=== PATIENT | male | born 1960 | race Caucasian/White ===

== ENCOUNTER → 2018-03-20 | Outpatient (CLI) | payer OTHER | LOC: M RAD 09:40 | DX: M19.011 Primary osteoarthritis, right shoulder (principal) ==

== ENCOUNTER → 2018-04-30 | Outpatient (CLI) | payer OTHER ==
[2018-04-30 09:09] LABS: HEMATOCRIT 45.6 % (42.0-52.0); MEAN CORPUSCULAR HEMOGLOBIN 32.9 pg (27.0-33.0); MEAN CORPUSCULAR HGB CONC 35.1 g/dl (32.0-36.5); MEAN CORPUSCULAR VOLUME 93.8 fl (80.0-96.0); PLATELET COUNT, AUTOMATED 221 10^3/uL (150-450); RED BLOOD COUNT 4.86 10^6/uL (4.30-6.10); RED CELL DISTRIBUTION WIDTH 11.8 % (11.5-14.5); WHITE BLOOD COUNT 5.3 10^3/uL (4.0-10.0)
[2018-04-30 09:27] LABS: ESTIMATED AVERAGE GLUCOSE 103 MG/DL (60-110); HEMOGLOBIN A1c 5.2 %
[2018-04-30 09:45] LABS: ALBUMIN 4.5 GM/DL (3.2-5.2); ALBUMIN/GLOBULIN RATIO 1.41 (1.00-1.93); ALKALINE PHOSPHATASE 66 U/L (45-117); ALT/SGPT 44 U/L (12-78); ANION GAP 8 MEQ/L (8-16); AST/SGOT 23 U/L (7-37); BLOOD UREA NITROGEN 11 MG/DL (7-18); CALCIUM LEVEL 9.6 MG/DL (8.5-10.1); CARBON DIOXIDE LEVEL 29 MEQ/L (21-32); CHLORIDE LEVEL 104 MEQ/L (98-107); CHOLESTEROL LEVEL 266 MG/DL (<200); CHOLESTEROL RISK RATIO 4.222 (<5); CREATININE FOR GFR 0.95 MG/DL (0.70-1.30); GLOMERULAR FILTRATION RATE > 60.0 (>56); GLUCOSE, FASTING 106 MG/DL (70-100); HDL CHOLESTEROL 63 MG/DL (>40); LDL CHOLESTEROL 180 MG/DL (<100); NON-HDL-C 203 MG/DL; POTASSIUM SERUM 5.3 MEQ/L (3.5-5.1); PSA SCREENING 1.29 NG/ML (< 4.0); SODIUM LEVEL 141 MEQ/L (136-145); TOTAL PROTEIN 7.7 GM/DL (6.4-8.2); TRIGLYCERIDES LEVEL 115 MG/DL (<150)
== END ==
LOC: M WUC 08:09
DX: Z00.00 Encounter for general adult medical examination without abnormal findings (principal); E78.00 Pure hypercholesterolemia, unspecified; Z12.5 Encounter for screening for malignant neoplasm of prostate; Z86.010 Personal history of colon polyps
CPT/HCPCS: 80053

== ENCOUNTER → 2018-06-22 | Outpatient (CLI) | payer OTHER | LOC: M EKG 12:51 | DX: Z01.818 Encounter for other preprocedural examination (principal); M25.511 Pain in right shoulder; M19.011 Primary osteoarthritis, right shoulder | CPT/HCPCS: 93005 ==

== ENCOUNTER → 2019-02-25 | Outpatient (REF) | payer OTHER | LOC: M LAB REF 12:27 | PROVIDERS: ATTEND Physician Assistant | DX: M19.90 Unspecified osteoarthritis, unspecified site (principal) ==

== ENCOUNTER → 2019-08-08 | Outpatient (REF) | payer OTHER | LOC: M LAB REF 18:27 | PROVIDERS: ATTEND Dermatology | DX: L57.0 Actinic keratosis (principal) ==

== ENCOUNTER → 2019-09-13 | Outpatient (REF) | payer OTHER | LOC: M SFHCPLAZ 08:57 | PROVIDERS: ATTEND Internal Medicine | DX: Z00.00 Encounter for general adult medical examination without abnormal findings (principal); E78.00 Pure hypercholesterolemia, unspecified; Z86.010 Personal history of colon polyps; R73.09 Other abnormal glucose ==

== ENCOUNTER → 2020-03-23 | Outpatient (CLI) | payer OTHER ==
[~2020-03-23] MED LIST: CINN500C15 PO; FISH1000 PO; VITATAB74 PO
== END ==
LOC: M LABSMTC 09:43
PROVIDERS: ATTEND Anesthesiology
DX: Z01.818 Encounter for other preprocedural examination (principal); Z11.59 Encounter for screening for other viral diseases
CPT/HCPCS: C9803; U0003

== ENCOUNTER 2020-03-28 07:16 | Day surgery (SDC) | payer OTHER ==
[~2020-03-28] VITALS: Ht 177.8 cm; Wt 76.6 kg
[~2020-03-28 07:16] MED LIST changes: +LIDOCAINE 2% 100MG/5ML SDV (FOR ANES.) As Ordered ONE; +NS 1,000 ML IV ONE; +propofoL 200 MG/20 ML VIAL As Ordered ONE
[2020-03-28 08:45] VITALS: BP 154/84
--- NOTE | 2020-03-28 11:39 | ROOR ---
Patient Name: Boni Espinoza Procedure Date: 03/28/2020 7:59 AM Date of : 1960 Age: 59 Room: [facility] Gender: Male Note Status: Finalized Procedure: Total Colonoscopy to Cecum + Cold Snare Polypectomy + Hemoclips Indications: High risk colon cancer surveillance: Personal history of colonic polyps, Last colonoscopy: 2013 Providers: Kirill Ortiz MD Referring MD: Misael Vanegas MD Requesting Provider: Medicines: Monitored Anesthesia Care Complications: No immediate complications. Procedure: Pre-Anesthesia Assessment: - The heart rate, respiratory rate, oxygen saturations, blood pressure, adequacy of pulmonary ventilation, and response to care were monitored throughout the procedure. The Colonoscope was introduced through the anus and advanced to the cecum, identified by appendiceal orifice and ileocecal valve. The colonoscopy was performed without difficulty. The patient tolerated the procedure well. The quality of the bowel preparation was good. Findings: The perianal and digital rectal examinations were normal. Non-bleeding internal hemorrhoids were found during retroflexion. The hemorrhoids were small and Grade I (internal hemorrhoids that do not prolapse). Multiple small and large-mouthed diverticula were found in the recto-sigmoid colon, sigmoid colon and descending colon. A medium polyp was found at 50 cm proximal to the anus. The polyp was sessile. The polyp was removed with a cold snare. Resection and retrieval were complete. To prevent bleeding after the polypectomy, one hemostatic clip was successfully placed (MR conditional). There was no bleeding at the end of the procedure. The exam was otherwise without abnormality on direct and retroflexion views. Impression: - Non-bleeding internal hemorrhoids. - Diverticulosis in the recto-sigmoid colon, in the sigmoid colon and in the descending colon. - One medium polyp at 50 cm proximal to the anus, removed with a cold snare. Resected and retrieved. Clip (MR conditional) was placed. - The examination was otherwise normal on direct and retroflexion views. - The exam was otherwise normal to the cecum. Recommendation: - Patient has a contact number available for emergencies. The signs and symptoms of potential delayed complications were discussed with the patient. Return to normal activities tomorrow. Written discharge instructions were provided to the patient. - High fiber diet. - Discharge patient to home. - Continue present medications. - Await pathology results. - Telephone GI clinic for pathology results in 1 week. - Repeat colonoscopy in 5 years for surveillance based on pathology results. - Return to referring physician. - The findings and recommendations were discussed with the patient. Kirill Ortiz MD Kirill Ortiz MD 03/28/2020 8:29:54 AM Electronically signed by Kirill Ortiz MD Number of Addenda: 0 Note Initiated On: 03/28/2020 7:59 AM Estimated Blood Loss: Estimated blood loss: none.
== END 2020-03-28 08:59 | disposition home or self-care (01) ==
LOC: M OPP 07:16
PROVIDERS: ATTEND Internal Medicine Gastroenterology
DX: Z12.11 Encounter for screening for malignant neoplasm of colon (principal); Z86.010 Personal history of colon polyps; D12.6 Benign neoplasm of colon, unspecified; K57.30 Diverticulosis of large intestine without perforation or abscess without bleeding; K64.0 First degree hemorrhoids

== ENCOUNTER → 2021-09-13 | Outpatient (CLI) | payer OTHER ==
[~2021-09-13] MED LIST changes: -LIDOCAINE 2% 100MG/5ML SDV (FOR ANES.) As Ordered ONE; -NS 1,000 ML IV ONE; -propofoL 200 MG/20 ML VIAL As Ordered ONE
[2021-09-13 13:30] LABS: HEMATOCRIT 43.7 % (42.0-52.0); HEMOGLOBIN 15.2 g/dl (13.5-17.5); MEAN CORPUSCULAR HEMOGLOBIN 33.3 pg (27.0-33.0); MEAN CORPUSCULAR HGB CONC 34.8 g/dl (32.0-36.5); MEAN CORPUSCULAR VOLUME 95.8 fl (80.0-96.0); PLATELET COUNT, AUTOMATED 208 10^3/uL (150-450); RED BLOOD COUNT 4.56 10^6/uL (4.30-6.10); WHITE BLOOD COUNT 4.8 10^3/uL (4.0-10.0)
[2021-09-13 13:57] LABS: HEMOGLOBIN A1c 5.1 %
[2021-09-13 14:00] LABS: ALBUMIN 3.9 GM/DL (3.2-5.2); ALT/SGPT 37 U/L (12-78); BILIRUBIN,TOTAL 0.8 MG/DL (0.2-1.0); BLOOD UREA NITROGEN 10 MG/DL (7-18); CALCIUM LEVEL 9.2 MG/DL (8.8-10.2); CARBON DIOXIDE LEVEL 29 MEQ/L (21-32); CHLORIDE LEVEL 104 MEQ/L (98-107); CHOLESTEROL LEVEL 262 MG/DL (<200); CHOLESTEROL RISK RATIO 4.763 (<5); CREATININE FOR GFR 0.93 MG/DL (0.70-1.30); GLOMERULAR FILTRATION RATE > 60.0 (>49); GLUCOSE, FASTING 96 MG/DL (70-100); HDL CHOLESTEROL 55 MG/DL (>40); LDL CHOLESTEROL 184 MG/DL (<100); NON-HDL-C 207 MG/DL; POTASSIUM SERUM 4.5 MEQ/L (3.5-5.1); SODIUM LEVEL 137 MEQ/L (136-145); TOTAL PROTEIN 7.2 GM/DL (6.4-8.2); TRIGLYCERIDES LEVEL 117 MG/DL (<150)
[2021-09-13 14:46] LABS: HEPATITIS C VIRUS ABY INDEX 0.1 INDEX (<0.8)
== END ==
LOC: M PLALAB 08:27
PROVIDERS: ATTEND Internal Medicine
DX: Z00.00 Encounter for general adult medical examination without abnormal findings (principal); Z12.5 Encounter for screening for malignant neoplasm of prostate; E78.00 Pure hypercholesterolemia, unspecified; Z11.59 Encounter for screening for other viral diseases; Z86.010 Personal history of colon polyps; R73.09 Other abnormal glucose
CPT/HCPCS: 36415; 80053; 80061; 83036; 85027; 86803; G0103

== ENCOUNTER → 2022-01-28 | Outpatient (CLI) | payer OTHER | LOC: M PLAIMG 08:54 | PROVIDERS: ATTEND Physician Assistant | DX: S39.92XA Unspecified injury of lower back, initial encounter (principal); X58.XXXA Exposure to other specified factors, initial encounter; Y92.9 Unspecified place or not applicable ==

== ENCOUNTER 2023-03-06 14:01 | Inpatient (IN) | payer OTHER ==
[~2023-03-06] VITALS: Ht 177.8 cm; Wt 78.4 kg
[~2023-03-06 14:01] MED LIST changes: +CLOPIDOGREL 75 MG TAB PO SCH
[2023-03-06 14:58] LABS: BASO % 0.3 % (0.0-1.0); HEMATOCRIT 43.9 % (42.0-52.0); HEMOGLOBIN 15.4 g/dl (13.5-17.5); LYMPH # 1.4 10^3/uL (1.5-5.0); LYMPH % 14.1 % (24.0-44.0); MEAN CORPUSCULAR HGB CONC 35.1 g/dl (32.0-36.5); MEAN CORPUSCULAR VOLUME 94.2 fl (80.0-96.0); MONO # 0.4 10^3/uL (0.0-0.8); MONO % 4.4 % (2.0-8.0); NEUTROPHILS # 7.8 10^3/uL (1.5-8.5); NEUTROPHILS % 80.9 % (36.0-66.0); PLATELET COUNT, AUTOMATED 211 10^3/uL (150-450); RED BLOOD COUNT 4.66 10^6/uL (4.30-6.10); WHITE BLOOD COUNT 9.6 10^3/uL (4.0-10.0)
[2023-03-06 15:09] LABS: INR 0.96; PROTHROMBIN TIME 12.5 SECONDS (12.5-14.5)
[2023-03-06 15:24] LABS: CK-MB VALUE MASS 1.3 NG/ML (<3.6)
[2023-03-06 15:28] LABS: MB/CK RELATIVE INDEX 1.08 (< OR =4)
[2023-03-06] MEDS ORDERED: ISOVUE-370 76% 100ML VIAL As Ordered ONE (15:31)
[2023-03-06 15:45] LABS: RSV AMPLIFICATION NEGATIVE (NEGATIVE)
[2023-03-06] MEDS ORDERED: AMLO1TAB24 PO (16:43)
[2023-03-06] MEDS ORDERED: VITA200048 PO (16:46)
[2023-03-06] MEDS ORDERED: MED REC IN PROGRESS XX SCH (16:50)
[2023-03-06] MEDS ORDERED: HOME MED LIST COMPLETE! XX SCH (16:50)
[2023-03-06] MEDS ORDERED: ASPIRIN 325 MG TAB PO ONE (18:00)
[2023-03-06 18:26] LABS: CHOLESTEROL RISK RATIO 3.65 (<5); HDL CHOLESTEROL 69.8 MG/DL (>40); NON-HDL-C 185.2 MG/DL
[2023-03-06 18:45] LABS: HEMOGLOBIN A1c 5.3 % (4.0-6.0)
[2023-03-06 20:36] VITALS: BP 146/86; TEMP 97.4; O2SAT 95
[2023-03-06] MEDS ORDERED: ROSUVASTATIN 10 MG TAB (CRESTOR) PO SCH (21:00)
[2023-03-07 00:55] VITALS: BP 117/60; TEMP 97.5; O2SAT 100
[2023-03-07] MEDS ORDERED: NS 1,000 ML IV SCH (02:05)
[2023-03-07 04:00] VITALS: BP 133/85; TEMP 97.2; O2SAT 95
[2023-03-07] MEDS ORDERED: NS 500 ML IV ONE (04:45)
[2023-03-07 06:25] LABS: HEMATOCRIT 40.9 % (42.0-52.0); HEMOGLOBIN 14.1 g/dl (13.5-17.5); MEAN CORPUSCULAR HEMOGLOBIN 33.2 pg (27.0-33.0); MEAN CORPUSCULAR HGB CONC 34.5 g/dl (32.0-36.5); MEAN CORPUSCULAR VOLUME 96.2 fl (80.0-96.0); PLATELET COUNT, AUTOMATED 192 10^3/uL (150-450); RED BLOOD COUNT 4.25 10^6/uL (4.30-6.10); WHITE BLOOD COUNT 5.3 10^3/uL (4.0-10.0)
[2023-03-07 06:49] LABS: BLOOD UREA NITROGEN 7 MG/DL (9-23); CALCIUM LEVEL 8.8 MG/DL (8.3-10.6); CARBON DIOXIDE LEVEL 28 MMOL/L (20-31); CHLORIDE LEVEL 105 MMOL/L (98-107); CREATININE FOR GFR 0.83 MG/DL (0.70-1.30); GLOMERULAR FILTRATION RATE > 60.0 (>49); GLUCOSE, FASTING 93 MG/DL (74-106); MAGNESIUM LEVEL 1.9 MG/DL (1.8-2.4); PHOSPHORUS LEVEL 3.5 MG/DL (2.4-5.1); SODIUM LEVEL 140 MMOL/L (136-145)
[2023-03-07 07:27] VITALS: BP 129/83; TEMP 97.8; O2SAT 95
[2023-03-07 08:14] VITALS: BP 129/83
[2023-03-07] MEDS ORDERED: ASPI81CH8 PO (08:43)
[2023-03-07] MEDS ORDERED: CRES10TA PO (08:43)
[2023-03-07] MEDS ORDERED: amLODIPine 5 MG TAB PO SCH (09:00)
[2023-03-07] MEDS ORDERED: ENOXAPARIN 40MG/0.4ML SYRINGE (J1650 PER 10MG) SC SCH (09:00)
[2023-03-07] MEDS ORDERED: ASPIRIN 81MG CHEW TABLET PO SCH (09:00)
[2023-03-07] MEDS ORDERED: SIMVASTATIN 40 MG TAB PO SCH (21:00)
== END 2023-03-07 12:30 | disposition home or self-care (01) | DRG 58 ==
LOC: M ED 14:01 → M ED INP 17:27 → M PCU 20:26
PROVIDERS: ADMIT Internal Medicine; ATTEND Internal Medicine
PROC: B246ZZZ Ultrasonography of Right and Left Heart (ICD-10-PCS; principal; 2023-03-07)
DX: R47.1 Dysarthria and anarthria (principal); I10 Essential (primary) hypertension; R41.3 Other amnesia; E78.5 Hyperlipidemia, unspecified; I65.22 Occlusion and stenosis of left carotid artery; E55.9 Vitamin D deficiency, unspecified; Z79.899 Other long term (current) drug therapy; Z20.822 Contact with and (suspected) exposure to COVID-19